=== PATIENT | female | born 1975 | race Caucasian/White ===

== ENCOUNTER → 2022-04-16 | Outpatient (CLI) | payer BC ==
[~2022-04-16] MED LIST: BASAGLAR K100 UNIT/1 SQ; ENDOCET 7.5-321 EACH PO; HYDROCODON-ACE1 EAC6 PO; IBU800 MG PO; LISINOPRIL2.5 MG PO; MAXZIDE 75 MG-1 EACH PO; METFORMIN HCL500 M2 PO; METOPROLOL SUCC25 MG PO; NOVOLOG FL100 UNIT/1 INJ; PAXIL40 MG PO; PRAVASTATIN SOD40 MG PO; TRULICITY1.5 MG/0.5 SQ; ZOFRAN ODT 4 MG4 MG PO
[2022-04-16 11:30] LABS: BUN/CREATININE RATIO 21 (0-10)
== END ==
LOC: OPSV2 10:00
PROVIDERS: Orthopaedic Surgery
DX: Z01.812 Encounter for preprocedural laboratory examination (principal); S82.891A Other fracture of right lower leg, initial encounter for closed fracture
CPT/HCPCS: 80048

== ENCOUNTER → 2022-04-17 | Day surgery (SDC) | payer BC | END | disposition home or self-care (01) | LOC: OR 07:58 | DX: S82.841A Displaced bimalleolar fracture of right lower leg, initial encounter for closed fracture (principal); E11.40 Type 2 diabetes mellitus with diabetic neuropathy, unspecified; E78.5 Hyperlipidemia, unspecified; J44.9 Chronic obstructive pulmonary disease, unspecified | CPT/HCPCS: 73610; 76000; 82962; C1713; J0690; J1100; J1170; J1885; J2001; J2250; J2405; J2704; J2795; J3010 ==